=== PATIENT | female | born 1960 | race Caucasian/White ===

== ENCOUNTER 2024-04-25 09:20 | Emergency (ER) | payer SELFPAY ==
[~2024-04-25] VITALS: Ht 160 cm; Wt 68.2 kg
[2024-04-25 09:46] VITALS: BP 140/76; PULSE 101; RESP 18; TEMP 97.8; O2SAT 98
== END 2024-04-25 11:35 | disposition left against medical advice (07) ==
LOC: ER 09:21
DX: I63.9 Cerebral infarction, unspecified (principal); Z53.21 Procedure and treatment not carried out due to patient leaving prior to being seen by health care provider